=== PATIENT | female | born 2000 | race Asian ===

== ENCOUNTER 2022-07-14 16:57 | Emergency (ER) | payer OTHER ==
[2022-07-14] MEDS ORDERED: LIDOCAINE 1%-EPI 1:100000 20 ML MDV SUBQ STA (20:26)
[2022-07-14] MEDS ORDERED: LIDOCAINE-EPINEPH-TETRACAINE 3 ML SYRINGE TOP STA (20:26)
--- NOTE | 2022-07-14 21:02 | ED Physician Documentation ---
PD HPI WOUND RECHECK - Stated complaint Stated Complaint: LT LEG SWOLLEN - Chief complaint Chief Complaint: Wound - Histroy obtained from History obtained from: Patient - Additional information Additional information: Patient is a 22-year-old female with no significant past medical history Presenting for evaluation of redness and swelling to left posterior thigh which is been present for at least 4 days. Patient reports that started off as a pimple and has progressively grown larger. She was seen at the [facility] on Tuesday Where they made an attempt to drain the abscess. They also started her on doxycycline. Due to increased redness and swelling, patient was directed to the emergency department for further evaluation. She is unsure if they did a wound culture. She has been compliant with the doxycycline.Patient denies fever, chest pain, difficulty breathing, abdominal pain. Review of Systems Constitutional: denies: Fever Nose: denies: Congestion Cardiac: denies: Chest pain / pressure Respiratory: denies: Dyspnea GI: denies: Abdominal Pain Skin: reports: Lesions Musculoskeletal: denies: Back pain Neurologic: denies: Headache PD PAST MEDICAL HISTORY - Past Medical History Past Medical History: No - Past Surgical History Past Surgical History: No - Present Medications Home Medications: Ambulatory Orders Medication Instructions Recorded Confirmed Doxycycline [Vibramycin] 100 mg PO 07/14/22 - Allergies Allergies/Adverse Reactions: Allergies Allergy/AdvReac Type Severity Reaction Status Date / Time No Known Drug Allergies Allergy Verified 07/14/22 17:05 - Social History Does the pt smoke?: No Smoking Status: Never smoker Does the pt drink ETOH?: Yes Does the pt have substance abuse?: No - Immunizations Immunizations are current?: Yes - POLST Patient has POLST: No PD ED PE NORMAL - General General: Alert and oriented X 3, No acute distress, Well developed/nourished - HEENT HEENT: Atraumatic - Neck Neck: Supple, no meningeal sign - Cardiac Cardiac: RRR, No murmur - Respiratory Respiratory: No respiratory distress, Clear bilaterally - Derm Derm: Other (2cm Redness and swelling to left posterior thigh, Area of fluctuance, small opening with No expressible drainage; larger area of surrounding faint erythema) Results - Vitals Vitals: Vital Signs - 24 hr 07/14/22 07/14/22 17:03 20:00 Temperature 36.3 C L 36.9 C Heart Rate 92 86 Respiratory 16 16 Rate Blood Pressure 106/78 110/70 O2 Saturation 97 100 Oxygen O2 Source Room air - Labs Labs: Microbiology 07/14/22 21:10 Wound Culture - Preliminary Abscess Procedures - Abscess I&D (location) L posterior thigh Preparation: Lidocaine 1%, LET, Other (Hibiclens) Incision: Incised with scalpel, Purulent drainage, Loculations broken, Culture obtained Other: Pt tolerated well, Dressing applied, Other (Pt To continue on doxycycline that she was already started on.) PD MEDICAL DECISION MAKING - ED course ED course: Patient with left posterior thigh abscess that was drained at outpatient clinic few days ago but worsening.Larger incision was made with loculations broken up and purulent drainage expressed. I did obtain a culture.Patient is otherwise well-appearing, not septic. Patient counseled to continue with antibiotic she was previously started on Given redness to the skin. Patient counseled to use warm compresses or sitz bath to allow the wound to continue to drain and to have close follow-up. Departure - Departure Disposition: 01 Home, Self Care Clinical Impression: Abscess of left thigh Condition: Stable Instructions: ED Abscess IandD Comments: You have an abscess to your left thigh that was incised and drained this evening.Please continue with the antibiotic that you were already started on. I have sent a wound culture. We will notify you if you need a different antibiotic. I would recommend sitz bath to help this area to drain. [facility] If you are not able [facility] then please return to the ER for recheck on Tuesday.If you have any worsening symptoms such as fever then please seek reevaluation sooner. In a bathtub To take a sitz bath in a tub: Make sure your bathtub is clean. Fill a clean bathtub with 3 to 4 inches of warm water. In some cases, your healthcare provider may tell you to use cold water instead. Add salt or medicine to the water if advised by your healthcare provider. Gently lower yourself down into the bathtub and sit on the bottom of the tub. Don't get into the bath unless the water temperature is comfortable. Hold on to a railing. Or ask for help from a family member, friend, or caregiver if needed. If you have a wound, the water may cause pain at first. But the pain should ease. Make sure the area that needs treating is under the water. You can bend your knees up to help expose the area that needs contact with the water Discharge Date/Time: 07/14/22 21:40
[2022-07-14 21:40] VITALS: BP 110/70
== END 2022-07-14 21:40 | disposition home or self-care (01) ==
LOC: ED 16:57
DX: L02.416 Cutaneous abscess of left lower limb (principal)
CPT/HCPCS: 10060; 87070; 87181; 87205